=== PATIENT | female | born 1950 | race Caucasian/White ===

== ENCOUNTER 2017-09-20 13:57 | Emergency (ER) | payer MEDICARE ==
[2017-09-20] MEDS ORDERED: ACETAMINOPHEN 325 MG TAB ONE (15:09)
== END 2017-09-20 15:27 | disposition home or self-care (01) ==
LOC: EDH 13:57
DX: S00.81XA Abrasion of other part of head, initial encounter (principal); I10 Essential (primary) hypertension; E78.5 Hyperlipidemia, unspecified; E07.9 Disorder of thyroid, unspecified; M19.90 Unspecified osteoarthritis, unspecified site; Z88.8 Allergy status to other drugs, medicaments and biological substances; V89.9XXA Person injured in unspecified vehicle accident, initial encounter; Y93.55 Activity, bike riding; Y92.89 Other specified places as the place of occurrence of the external cause; Y99.8 Other external cause status
CPT/HCPCS: 70450

== ENCOUNTER → 2021-08-10 | Outpatient (CLI) | payer MEDICARE | END | disposition home or self-care (01) | LOC: RAH 12:58 | PROVIDERS: ATTEND Anesthesiology | DX: M47.812 Spondylosis without myelopathy or radiculopathy, cervical region (principal); M50.221 Other cervical disc displacement at C4-C5 level; M48.02 Spinal stenosis, cervical region; Z98.1 Arthrodesis status | CPT/HCPCS: 72141 ==

== ENCOUNTER → 2025-07-22 | Outpatient (CLI) | payer MEDICARE ==
--- NOTE | 2025-07-22 21:32 | HMCIMG ---
EXAM: CT SCAN OF THE BRAIN WITHOUT CONTRAST CLINICAL HISTORY: History of falling. TECHNIQUE: Axial computed tomography images of the head and brain were obtained without intravenous contrast. Coronal and sagittal reformatted images were generated. Radiation dose reduction was achieved using ALARA (as low as reasonably achievable) principles, including automatic exposure control, size-based mA and kV adjustment, and iterative reconstruction. RADIATION DOSE: CTDIvol 49.30 mGy; DLP 1009.70 mGycm. CONTRAST: No intravenous contrast administered. COMPARISON: None provided. FINDINGS: Brain parenchyma: Brain parenchyma demonstrates normal attenuation without CT evidence of acute intraparenchymal hemorrhage, mass effect, or large territorial infarct. Graywhite matter differentiation is preserved. White matter: Focal hypodense areas are present in the bilateral periventricular and subcortical white matter, most likely representing chronic small vessel ischemic change. Ventricles and cisterns: Ventricular system is normal in size and configuration without hydrocephalus or midline shift. Basal cisterns and sylvian fissures are patent. Extra-axial spaces: Prominence of the cortical sulci and extra-axial CSF spaces is compatible with age-related cerebral volume loss. No extra-axial fluid collection or acute extra-axial hemorrhage is identified. Posterior fossa: Brainstem and cerebellum are unremarkable without focal lesion or mass effect. Cerebellopontine angles are clear. Sellar/parasellar region: Pituitary gland, pineal region, and optic chiasm appear unremarkable. CP angles and IACs: Internal auditory canals are unremarkable without abnormal density or mass. Skull and sinuses: Calvarium and skull base demonstrate normal bone density without acute fracture or destructive osseous lesion. Visualized paranasal sinuses are clear. IMPRESSION: * No CT evidence of acute intracranial hemorrhage, mass effect, or large territorial infarct in this patient with a history of falling. * Chronic small vessel ischemic changes in the bilateral periventricular and subcortical white matter. * Mild age-related cerebral volume loss without hydrocephalus. * No acute calvarial or skull base abnormality identified. /[place]
== END | disposition home or self-care (01) ==
LOC: RAH 12:25
PROVIDERS: ATTEND Internal Medicine Nephrology
DX: I67.82 Cerebral ischemia (principal); G91.8 Other hydrocephalus; Z91.81 History of falling
CPT/HCPCS: 70450